=== PATIENT | female | born 1960 | race Caucasian/White ===

== ENCOUNTER 2022-08-11 09:58 | Emergency (ER) | payer SELFPAY ==
[2022-08-11] VITALS (43 sets, daily range): BP systolic 45–89; BP diastolic 31–71; PULSE 20–71; RESP 18–28; TEMP 26.6; O2SAT 100
--- NOTE | ~2022-08-11 | XR_ITS ---
Portable chest x-ray Comparison: None Clinical History: Unresponsive Findings: Questionable abnormal density at the left perihilar region, however this may be related to patient rotation. Lungs otherwise are grossly clear. Cardiomediastinal silhouette is stable. Bones and soft tissues are unremarkable. Impression: Atypical contour along the left perihilar region is probably related to patient rotation, however und erlying mass or airspace opacity not completely excluded. Consider CT or repeat chest radiograph with improved positioning to further evaluate. Reviewed, dictated and finalized at location . Impression: Atypical contour along the left perihilar region is probably related to patient rotation, however underlying mass or airspace opacity not completely excluded. Consider CT or repeat chest radiograph with improved positioning to further ev aluate.
--- NOTE | ~2022-08-11 | CT_ITS ---
EXAMINATION: CT brain wo con DATE: 08/11/2022 10:35 INDICATION: Patient found breathing been unresponsive TECHNIQUE: Computed tomography (CT) of the head was performed without intravenous contrast. The mA wa s adjusted according to patient size. Iterative reconstruction technique was employed. Exam dose: 68 1.00 mGy-cm total exam DLP. COMPARISON: None FINDINGS: Bilateral carotid siphon internal carotid artery calcifications. There is evidence of bilat eral small cerebellar lacunar infarcts. Bilateral thalamic chronic lacunar infarcts. Small left frontoparietal chronic cerebrovascular accid ent. No intracranial mass lesion or hemorrhage or recent cerebrovascular accident is detected. Normal ventricular size. Moderate cortical cerebral atrophy. No subdural or epidural hematoma. No fracture or bone destruction of the cranial vault. Is a prominent mucous retention cyst or polyp in the floor of the right maxillary sinus and a probabl e small mucus retention cyst in the posterior floor of the same sinus. The paranasal sinuses and mast oid air cells are otherwise unremarkable. No fracture or bone destruction of the cranial vault. IMPRESSION: Cerebral atherosclerosis Chronic lacunar infarcts of the cerebellar hemispheres and thalamus and small old left frontoparietal cerebrovascular accident No recent cerebrovascular accident or any intracranial mass lesion or hemorrhage is detected Reviewed, dictated and finalized at [facility]. Reviewed, dictated and finalized at location [facility]. IMPRESSION: Cerebral atherosclerosis Chronic lacunar infarcts of the cerebellar hemispheres and thalamus and small o ld left frontoparietal cerebrovascular accident No recent cerebrovascular accident or any intracranial mass lesion or hemorrhag e is detected
[2022-08-11 10:05] LABS: Glucose Point of Care > 450 mg/dl (65-105)
[2022-08-11] MEDS: SODIUM CHLORIDE 0.9% IV 1,000 ML 999 ML IV CONT ×4 (10:05→11:59)
--- NOTE | 2022-08-11 10:08 | ECG_ITS ---
Measurements Intervals [place] Rate: 68 P: IA: 0 QRS: 93 QRSD: 188 T: 90 QT: 502 QTc: 535 Interpretive Statements RHYTHM INDETERMINATE BORDERLINE RIGHT AXIS DEVIATION [QRS AXIS > 90] INTRAVENTRICULAR CONDUCTION DELAY [130+ ms QRS DURATION] INFEROLATERAL ST AND T-WAVE ABNORMALITY, CONSIDER ISCHEMIA ABNORMAL ECG NO PREVIOUS ECG AVAILABLE FOR COMPARISON Electronically Signed On 08-11-2022 16:34:33 CDT by Efren Benavidez M.D.
[2022-08-11 10:21] LABS: Base Excess ABG -32.4 mmol/L (0-2); HCO3 ABG 3.7 mmol/L (23-29); Oxygen Content ABG 15.2 %vol (16.0-22.0); Oxygen Saturation ABG 94.5 % (95-97); Oxyhemoglobin 94.2 % (94-100); PCO2 ABG 32.6 mmHg (35-45); PO2 ABG 113.7 mmHg (80-90); Total Hemoglobin 11.3 g/dL (12.0-18.0)
[2022-08-11 10:24] LABS: Hematocrit 39.1 % (35.0-49.0); Hemoglobin 10.3 g/dL (12.0-15.0); Mean Corpuscular HGB Conc 26.3 g/dL (32.0-36.0); Mean Corpuscular Hemoglobin 24.8 pg (27.0-31.0); Mean Corpuscular Volume 94.2 fL (78.0-102.0); Platelet Count Result 255 K/mm3 (150-420); Red Blood Count 4.15 M/mm3 (4.20-5.40); Red Cell Distribution Width 23.3 % (11.6-14.4); White Blood Count 12.3 K/mm3 (4.8-10.8)
[2022-08-11 10:26] LABS: Device NON-REBREATHER MASK; Modified Allen's Test Pass; Site Drawn LEFT RADIAL; pH ABG 6.67 (7.35-7.45)
--- NOTE | 2022-08-11 10:26 | PC.NURSE ---
lab reports Ph of [phone], erp is made aware.
[2022-08-11] MEDS: SODIUM BICARBONATE 8.4% 50 MEQ/50 ML SYRINGE 52 MEQ IV PUSH ×3 (10:36→13:28)
[2022-08-11] MEDS: ATROPINE SULFATE 1 MG/10 ML SYRINGE IV PUSH (10:37)
[2022-08-11 10:38] LABS: Band Neutrophils Percent 5 % (0-6); INR 1.1; Lymphocytes Absolute Manual 5.28 K/mm3 (1.1-4.5); Lymphocytes Percent Manual 43 % (18-44); Metamyelocytes Percent 4 %; Monocytes Absolute Manual 0.12 K/mm3 (0.1-0.90); Monocytes Percent Manual 1 % (3-9); Myelocytes Percent 1 %; Neutrophils Absolute Manual 6.27 K/mm3 (1.7-7.2); Neutrophils Percent Manual 46 % (46-73); Partial Thromboplastin Time 33.4 SEC (23.90-30.70); Platelet Estimate Adequate (Adequate); Prothrombin Time 12.4 Seconds (9.50-12.10); Total Cells Counted 100
--- NOTE | 2022-08-11 10:38 | PC.NURSE ---
DR PHELPS TALKING WITH FAMILY
[2022-08-11 10:45] LABS: Lactic Acid Reflex 13.7 mmol/L (0.4-2.0)
[2022-08-11 10:47] LABS: Glucose Point of Care > 450 mg/dl (65-105)
[2022-08-11 10:48] LABS: D Dimer 11.96 mg/L (0.19-0.50)
[2022-08-11 10:54] LABS: Alanine Aminotransferase 107 U/L (14-59); Albumin Level 2.8 g/dL (3.4-5.0); Alkaline Phosphatase 216 U/L (46-116); Ammonia 159 umol/L (11-32); Anion Gap 32 mmol/L (8-16); Aspartate Amino Transferase 372 U/L (15-37); Bilirubin,Total 0.7 mg/dL (0.00-1.00); Blood Urea Nitrogen 74 mg/dL (7-18); Carbon Dioxide 8 mmol/L (21-32); Chloride 105 mmol/L (98-108); Estimated CRCL calculation 10 ml/min; Estimated Glomerular Filt Rate 10; Magnesium 4.2 mg/dL (1.8-2.4); Sodium 145 mmol/L (136-145); Thyroid Stimulating Hormone 8.11 uIU/mL (0.36-3.74); Total Protein 7.3 g/dL (6.4-8.2)
[2022-08-11 10:54] LABS: NT Pro B Type Natriuretic Pept 9696 pg/mL (0-125)
[2022-08-11] MEDS: DOPamine 400 MG/D5W 250 ML 400 MG/250 ML BAG IV CONT (10:54)
[2022-08-11 10:55] LABS: Potassium 7.6 mmol/L (3.5-5.1)
[2022-08-11 10:56] LABS: Osmolality Calculated 361 mOsm/kg (285-295)
[2022-08-11 10:57] LABS: Glucose > 800 mg/dL (70-99); Troponin I 476.9 ng/L (0.00-60.4)
[2022-08-11 11:06] LABS: Phosphorus > 8.0 mg/dL (2.6-4.7)
[2022-08-11] MEDS: INSULIN REG 100 UNITS/100 ML 100 UNITS/100 ML BAG 23.8 UNITS IV CONT (11:07)
[2022-08-11 11:22] LABS: Creatine Kinase 11043 U/L (26-192)
[2022-08-11 11:23] LABS: Influenza A QL RT-PCR Negative (Negative); Influenza B QL RT-PCR Negative (Negative); SARS-CoV-2 RNA PCR Negative (Negative)
[2022-08-11 11:25] LABS: Glucose Point of Care > 450 mg/dl (65-105)
[2022-08-11 11:30] LABS: RSV RNA, RT-PCR Negative (Negative)
[2022-08-11 12:12] LABS: Glucose Point of Care > 450 mg/dl (65-105)
[2022-08-11 12:12] LABS: Base Excess ABG -27.7 mmol/L (0-2); HCO3 ABG 4.9 mmol/L (23-29); Oxygen Saturation ABG 96.3 % (95-97); Oxyhemoglobin 95.8 % (94-100); PCO2 ABG 29.1 mmHg (35-45); PO2 ABG 126.3 mmHg (80-90); Total Hemoglobin 10.2 g/dL (12.0-18.0)
[2022-08-11 12:13] LABS: pH ABG 6.85 (7.35-7.45)
[2022-08-11 12:14] LABS: Device NON-REBREATHER MASK; Modified Allen's Test Pass; Site Drawn LEFT RADIAL
[2022-08-11 12:30] LABS: Alanine Aminotransferase 124 U/L (14-59); Albumin Level 2.1 g/dL (3.4-5.0); Alkaline Phosphatase 172 U/L (46-116); Anion Gap 29 mmol/L (8-16); Aspartate Amino Transferase 509 U/L (15-37); Bilirubin,Total 0.7 mg/dL (0.00-1.00); Blood Urea Nitrogen 65 mg/dL (7-18); Calcium 6.8 mg/dL (8.5-10.1); Carbon Dioxide 8 mmol/L (21-32); Chloride 114 mmol/L (98-108); Estimated CRCL calculation 11 ml/min; Estimated Glomerular Filt Rate 12; Sodium 151 mmol/L (136-145); Total Protein 5.5 g/dL (6.4-8.2)
[2022-08-11] MEDS: NOREPINEPHRINE 8 MG/D5W 250 ML 8 MG/250 ML BAG 9.38 MG IV CONT (12:33)
--- NOTE | 2022-08-11 12:37 | ED.AMS ---
HPI - Altered Mental Status General Chief Complaint: Altered Mental Status Stated Complaint: DKA Source: family and EMS Mode of arrival: EMS Limitations: altered mental status, physical limitation and clinical condition History of Present Illness HPI narrative: this is a 62-year-old female with a history of diabetes and has insulin pump, patient family called EMS because the patient was found unresponsive EMS arrived and patient was minimally responsive to painful stimuli patient had a decreased heart rate and epinephrine was given by EMS. Patient arrived to the emergency department and patient was being bagged with some O2 at 100% and respiratory rate in the around 18 to 20 blood pressure was systolic was low around 60 systolic and pain showed was found to be in DKA with a extremely high blood sugar. Patient apparently has been compliant with using her insulin pump and had an extremely high blood sugar reading. MD complaint: altered mental status and decreased responsiveness Onset (ago): hour(s) Timing confirmed by: family member Severity: severe Consistency of symptoms: constant Related Data Allergies Allergy/AdvReac Type Severity Reaction Status Date / Time No Known Allergies Allergy Unverified 11/11/13 18:19 Review of Systems Review of Systems: All systems reviewed & are unremarkable except as noted in HPI and below [facility] Past Medical History Medical History Diabetes mellitus Exam Const: General: ill appearing Nutritional Appearance: thin Limitations: altered mental status and physical limitations HENMT: Head: normal to inspection Eyes: Conjunctivae: conjunctivae normal Neck: Neck: normal visual inspection and no lymphadenopathy Chest: Chest palpation & inspection: normal inspection of the chest Resp: Effort & Inspection: normal respiratory effort Auscultation: clear to auscultation bilaterally Cardio: Rate: bradycardic Rhythm: regular rhythm GI: GI Palp: Yes Soft to palpation and Yes Tenderness to palpation present (GI) : General: Yes bladder normal to palpation Back/Spine/Pelvis: Back: no CVA tenderness Skin: General skin exam: normal color Rashes: no rashes Neuro: General: no focal motor deficits Cranial nerves: Yes Nystagmus not present Speech: Abnormal speech present Extrem: General: normal to inspection, no clubbing, cyanosis or edema and no pedal edema Course Course Emergency Course: patient assessment shows that her respiratory status is stable and on a non-rebreather with some 100% saturation and respiratory rate around 1920, the patient's blood pressure has been hypotensive and started on dopamine peripherally and reached dopamine at around 40 mics which was not sustaining her blood pressure. Patient had a blood glucose reading of greater than 1200 on CMP withdrawal ABGs at pH of 6.68 with a bicarb of 3.7 and and is an anion gap metabolic acidosis with an anion gap on CMP showing 32. Patient is slightly more responsive after reassessment but only moaning and currently nonverbal. Patient had chest x-ray performed which shows left perihilar opacities versus mass and antibiotics were started, with ceftriaxone and azithromycin. The patient's CT scan showed no acute intracranial abnormalities. The patient blood pressure initially stable eyes due to a systolic around 82 on dopamine but after reaching dose of 40 mics per minute blood pressure systolic is still in the the mid upper 50s and a central line was placed and Levophed was started to stabilize blood pressure. The patient had 5L of normal saline and started on an insulin drip, patient also received atropine in the emergency department to stabilize some slow heart rate and patient also given 2 amps of bicarb. Family was present and spoke to family about code status and the patient is a full code, spoke to family about interventions and about transfer to [facility]. Spoke to
[2022-08-11 12:56] LABS: Potassium 7.3 mmol/L (3.5-5.1)
[2022-08-11 12:57] LABS: Osmolality Calculated 370 mOsm/kg (285-295)
[2022-08-11 12:58] LABS: Glucose > 800 mg/dL (70-99); Troponin I 506.4 ng/L (0.00-60.4)
[2022-08-11 13:17] LABS: Glucose Point of Care > 450 mg/dl (65-105)
[2022-08-11 13:17] LABS: Reflex Lactic Acid Yes or No Add Lactic
[2022-08-11] MEDS: INSULIN REG 100 UNITS/100 ML 100 UNITS/100 ML BAG 18.52 UNITS IV CONT (13:19)
[2022-08-11] MEDS: CALCIUM GLUC 1,000 MG/NS 50 ML 1,000 MG/50 ML BAG 100 MG IVPB (13:26)
--- NOTE | 2022-08-13 14:42 | PC.NURSE ---
pt called to see if she was put on any abx at discharge from [facility]. no answer. message left to return call
--- NOTE | 2022-08-14 12:52 | PC.NURSE ---
2 attempts and messages left for pt regarding abt and abnormal blood cultures. pt was transferred to [place].
--- NOTE | 2022-08-15 11:52 | PC.NURSE ---
RN spoke with staff on floor that patient was transfer to. patient has .
== END 2022-08-11 13:56 | disposition short-term general hospital (02) ==
PROVIDERS: Emergency Provider Emergency Medicine
DX: E11.10 Type 2 diabetes mellitus with ketoacidosis without coma (principal); R74.8 Abnormal levels of other serum enzymes; R91.8 Other nonspecific abnormal finding of lung field; Z79.4 Long term (current) use of insulin; I95.9 Hypotension, unspecified; Z20.822 Contact with and (suspected) exposure to COVID-19
CPT/HCPCS: 36415; 36556; 36600; 70450; 71045; 80053; 82140; 82550; 82805; 82948; 83605; 83735; 83880; 84100; 84443; 84484; 85025; 85380; 85610; 85730; 87040; 87147; 87186; 87637; 93005; 96361; 96365; 96366; 96367; 96368; 96375; 99291; C1751; J0456; J0461; J0612; J0696; J1265; J1815; J7030